=== PATIENT | male | born 1945 | race Caucasian/White ===

== ENCOUNTER → 2018-09-13 | Outpatient (CLI) | payer OTHER ==
[~2018-09-13] MED LIST: AMBR10TA3 PO; AMLO5TAB7 PO; ASPI-515 PO; ATOR-2 PO; CHOL200074 PO; FURO20TA3 PO; LEVA15HF4 INH; LIRA0.6P SQ-INSULIN; LIRAGLUTIDE PO; LOSA1TAB22 PO; METF100P3 PO; NEBI20TA2 PO; OMEP-110 PO; POTA10TA PO; TIOT18CA INH; TREP1.743 PO
== END | disposition home or self-care (01) ==
LOC: CFH 12:18
PROVIDERS: ATTEND Family Medicine
DX: N62 Hypertrophy of breast (principal)
CPT/HCPCS: 77066

== ENCOUNTER → 2020-08-05 | Outpatient (CLI) | payer MEDICARE ==
[~2020-08-05] MED LIST changes: +AMLO-150 PO; -AMLO5TAB7 PO
== END | disposition home or self-care (01) ==
LOC: CARD 13:03
PROVIDERS: ATTEND Family Medicine
DX: R06.02 Shortness of breath (principal)
CPT/HCPCS: 94618

== ENCOUNTER → 2020-08-19 | Outpatient (CLI) | payer MEDICARE | END | disposition home or self-care (01) | LOC: RAD 09:19 → EDSTATUS 10:00 | PROVIDERS: ATTEND Family Medicine | DX: J43.9 Emphysema, unspecified (principal); I25.10 Atherosclerotic heart disease of native coronary artery without angina pectoris; R59.0 Localized enlarged lymph nodes | CPT/HCPCS: 71250 ==

== ENCOUNTER 2020-10-07 08:29 | Day surgery (SDC) | payer MEDICARE ==
[~2020-10-07] VITALS: Ht 175.3 cm; Wt 88.6 kg
[2020-10-07] MEDS ORDERED: SODIUM CHLORIDE 0.9% 1,000 ML IV SCH (09:00)
[2020-10-07] MEDS ORDERED: TREP5TAB PO (09:50)
[2020-10-07] MEDS ORDERED: FLUT1BLS3 IH (09:50)
[2020-10-07] MEDS ORDERED: FLUO20CA23 PO (09:50)
[2020-10-07] MEDS ORDERED: SILD20TA PO (09:50)
[2020-10-07] MEDS ORDERED: SPIR25TA5 PO (09:50)
[2020-10-07 09:52] VITALS: BP 117/55
[2020-10-07] MEDS ORDERED: FENTANYL PF 100 MCG/2ML ONE (10:03)
[2020-10-07] MEDS ORDERED: MIDAZOLAM 1 MG/ML, 5ML ONE (10:03)
[2020-10-07] MEDS ORDERED: LIDOCAINE 2%, 20ML ONE (10:03)
[2020-10-07] MEDS ORDERED: DIPHENHYDRAMINE 50 MG/ML, 1ML ONE (10:58)
== END 2020-10-07 12:55 | disposition home or self-care (01) ==
LOC: CACL 08:29
PROVIDERS: ATTEND Internal Medicine Cardiovascular Disease
DX: I27.0 Primary pulmonary hypertension (principal); I50.30 Unspecified diastolic (congestive) heart failure; J44.9 Chronic obstructive pulmonary disease, unspecified; E78.00 Pure hypercholesterolemia, unspecified; G47.30 Sleep apnea, unspecified; E11.9 Type 2 diabetes mellitus without complications; E66.9 Obesity, unspecified; Z79.82 Long term (current) use of aspirin; Z79.899 Other long term (current) drug therapy; Z72.89 Other problems related to lifestyle; Z87.891 Personal history of nicotine dependence; Z68.28 Body mass index [BMI] 28.0-28.9, adult; Z98.890 Other specified postprocedural states; Z82.49 Family history of ischemic heart disease and other diseases of the circulatory system
CPT/HCPCS: 93451; 99156; C1769; C1894; J1200; J2250; J3010

== ENCOUNTER → 2020-12-31 | Outpatient (CLI) | payer MEDICARE ==
[~2020-12-31] MED LIST changes: -ASPI-515 PO; +ASPI-963 PO; +FLUO20CA23 PO; +FLUT1BLS3 IH; +SILD20TA PO; +SPIR25TA5 PO; +TREP5TAB PO
== END | disposition home or self-care (01) ==
LOC: CFH 13:48
PROVIDERS: ATTEND Family Medicine
DX: D48.1 Neoplasm of uncertain behavior of connective and other soft tissue (principal); N62 Hypertrophy of breast; N64.4 Mastodynia; R23.4 Changes in skin texture
CPT/HCPCS: 76642; 77062; 77066; G0279

== ENCOUNTER → 2021-05-29 | Outpatient (CLI) | payer MEDICARE | END | disposition home or self-care (01) | LOC: PETCFH 12:43 | PROVIDERS: ATTEND Surgery | DX: C43.59 Malignant melanoma of other part of trunk (principal) | CPT/HCPCS: 78816; A9552 ==

== ENCOUNTER → 2021-06-04 | Outpatient (CLI) | payer MEDICARE ==
[~2021-06-04] MED LIST changes: +REGADENOSON 0.4 MG/5 ML SYRINGE ONE
== END | disposition home or self-care (01) ==
LOC: CFH 12:07
PROVIDERS: ATTEND Internal Medicine Cardiovascular Disease
DX: Z01.810 Encounter for preprocedural cardiovascular examination (principal)
CPT/HCPCS: 78452; 93017; A9502; J2785

== ENCOUNTER 2021-06-17 13:50 | Outpatient (CLI) | payer MEDICARE ==
[~2021-06-17 13:50] MED LIST changes: -REGADENOSON 0.4 MG/5 ML SYRINGE ONE
== END 2021-06-17 23:59 | disposition home or self-care (01) ==
LOC: CFH 13:50
PROVIDERS: ATTEND Surgery
DX: Z02.9 Encounter for administrative examinations, unspecified (principal)

== ENCOUNTER 2021-06-19 09:03 | Day surgery (SDC) | payer MEDICARE ==
[~2021-06-19] VITALS: Ht 175.3 cm; Wt 94.5 kg
[~2021-06-19 09:03] MED LIST changes: +BUPIVACAINE/PF 0.5% ONE; +EPINEPHRINE 1 MG/ML, 1ML ONE
[2021-06-19 09:52] VITALS: BP 125/63
[2021-06-19] MEDS ORDERED: FENTANYL PF 100 MCG/2ML IV PRN (10:00)
[2021-06-19] MEDS ORDERED: LACTATED RINGERS 1,000 ML IV SCH (10:00)
[2021-06-19] MEDS ORDERED: ALBUTEROL SULFATE 2.5 MG/3 ML NPPB PRN (10:00)
[2021-06-19] MEDS ORDERED: PROMETHAZINE 25 MG/ML, 1ML IVPush PRN (10:00)
[2021-06-19] MEDS ORDERED: hydrALAzine 20 MG/ML, 1ML IV PRN (10:00)
[2021-06-19] MEDS ORDERED: ACETAMINOPHEN 325 MG TABLET PO PRN (10:00)
[2021-06-19] MEDS ORDERED: OXYcodone 5 MG/5 ML ORAL.SOL UDC PO PRN (10:00)
[2021-06-19] MEDS ORDERED: TRELEGY (10:02)
[2021-06-19] MEDS ORDERED: POTA10TA6 PO (10:04)
[2021-06-19] MEDS ORDERED: AMBR10TA3 PO (10:04)
[2021-06-19] MEDS ORDERED: CHLORHEXIDINE 15 ML UDC ONE (10:07)
[2021-06-19] MEDS ORDERED: MIDAZOLAM 1 MG/ML, 2ML ONE (10:19)
[2021-06-19] MEDS ORDERED: FENTANYL PF 250 MCG/5ML ONE (10:19)
[2021-06-19] MEDS ORDERED: CHLORHEXIDINE 15 ML UDC PO ONE (10:30)
[2021-06-19] MEDS ORDERED: LIDOCAINE/PF 1%, 30ML ONE ×2 (10:35→11:23)
[2021-06-19] MEDS ORDERED: SODIUM BICARBONATE 4.2%, 5ML ONE (10:35)
[2021-06-19] MEDS ORDERED: KETAMINE 10 MG/ML, 20ML ONE (10:44)
[2021-06-19] MEDS ORDERED: CETIRIZINE PO (10:49)
[2021-06-19] MEDS ORDERED: TIOTROPIUM (10:50)
[2021-06-19] MEDS ORDERED: PROPOFOL 10 MG/ML, 20ML ONE (11:41)
[2021-06-19] MEDS ORDERED: CEFAZOLIN 1,000 MG ONE (11:41)
[2021-06-19] MEDS ORDERED: ONDANSETRON 2MG/ML, 2ML ONE (11:41)
[2021-06-19] MEDS ORDERED: HYDR-2214 PO (12:09)
== END 2021-06-19 15:30 | disposition home or self-care (01) ==
LOC: OUT 09:03
PROVIDERS: ATTEND Surgery
DX: C43.59 Malignant melanoma of other part of trunk (principal); E11.22 Type 2 diabetes mellitus with diabetic chronic kidney disease; I12.9 Hypertensive chronic kidney disease with stage 1 through stage 4 chronic kidney disease, or unspecified chronic kidney disease; N18.9 Chronic kidney disease, unspecified; J44.9 Chronic obstructive pulmonary disease, unspecified; I27.20 Pulmonary hypertension, unspecified; K21.9 Gastro-esophageal reflux disease without esophagitis; E78.5 Hyperlipidemia, unspecified; Z79.82 Long term (current) use of aspirin; Z79.899 Other long term (current) drug therapy; Z87.891 Personal history of nicotine dependence; Z99.81 Dependence on supplemental oxygen; Z82.49 Family history of ischemic heart disease and other diseases of the circulatory system; Z80.0 Family history of malignant neoplasm of digestive organs
CPT/HCPCS: 14000; 82962; 88307; J0171; J0690; J2250; J2405; J2704; J3010; J7120